=== PATIENT | male | born 2000 | race Caucasian/White ===

== ENCOUNTER 2025-07-30 20:29 | Emergency (ER) | payer BC, SELFPAY ==
[2025-07-30 20:31] VITALS: BP 132/85; PULSE 78; RESP 16; TEMP 36.6; O2SAT 98; BMI 26.0
--- NOTE | 2025-07-30 21:43 | CT_ITS ---
PROCEDURE: CT SINUS/FACIAL BONE WITH CONTRAS 07/30/2025 REASON FOR EXAM: LEFT FACIAL ABSCESS TECHNIQUE: Procedure Code: CTSIW Modality: CT Procedure: SINUS/FACIAL BONE WITH CONTRAS Coronal and Sagittal reconstruction series were provided. CONTRAST: Isovue 370 VOLUME: 97 mL One or more dose reduction techniques were used (e.g., Automated exposure control, adjustment of the mA and/or kV according to patient size, use of iterative reconstruction technique). RADIATION DOSE SUMMARY: CTDlvol: 29.38 mGy DLP: 554.8 mGycm COMPARISON: None. FINDINGS: Subcutaneous fat stranding/edema in the lateral left facial soft tissues with skin thickening/cellulitic changes. Small superficial subcutaneous phlegmonous collection just inferior to the left zygomatic arch measuring approximately 20 x 15 mm, but no organized rim enhancing fluid collection/abscess. No suspicious lymph node enlargement. Shotty subcentimeter reactive upper cervical lymph nodes. Orbital contents are unremarkable. The visualized osseous structures are intact and within normal limits. No osseous erosion or destruction. Clear paranasal sinuses and bilateral mastoid air cells. CT/Sinus/Facial Bone WITH Contras IMPRESSION: Subcutaneous fat stranding/edema and cellulitic changes in the lateral left fac ial soft tissues with a small superficial phlegmonous collection measuring roughly 20 mm just inferior to the left zygoma tic arch. No organized drainable fluid collection/abscess. Unremarkable osseous structures. Reading Location: [id number]
[2025-07-30 22:03] LABS: Hematocrit 41.1 % (40-54); Hemoglobin 14.3 g/dL (13.0-16.5); Immature Granulocytes Count 0.040 X10^3/uL (0.0-0.0); Mean Corp Hgb Conc 34.8 g/dL (32-36); Mean Corpuscular Volume 85.4 fL (80-94); Mean Platelet Vol. 9.9 fl (6.2-12.0); NRBC Flagged by Analyzer 0 % (0-5); Platelet Count 286 K/mm3 (150-450); RBC Distribution Width CV 11.4 % (11.6-14.6); RBC Distribution Width SD 35.7 fl (35.1-43.9); Red Blood Count 4.81 M/mm3 (4.6-6.2); White Blood Count 13.9 K/mm3 (4.4-11.0)
[2025-07-30 22:13] LABS: Anion Gap 13 (5-15); BUN 14 mg/dL (4-19); BUN/Creat Ratio 14.8 RATIO (10-20); Calcium,Total 9.4 mg/dL (7.6-11.0); Carbon Dioxide 24.3 mmol/L (21.0-32.0); Chloride 100 mmol/L (98-108); Estimated Creatinine Clearance 133.00 ml/min (50-250); Glucose 116 mg/dL (70-99); Potassium 3.8 mmol/L (3.3-5.1)
[2025-07-30 22:30] VITALS: BP 135/86; PULSE 76; RESP 16; TEMP 37; O2SAT 96
--- NOTE | 2025-07-31 00:08 | EX.ED.DYSGE1 ---
HPI History of Present Illness Chief Complaint: Abscess Narrative Narrative: Chief complaint and HPI: This 25-year-old male with no significant past medical history presents for concern of left facial abscess. Patient states he developed a pimple on the left side of his face. Attempted popping the area x 2. States since Friday he has been having increased pain and swelling to the area. He denies any fever, chills, URI symptoms, nausea, vomiting, headache, vision or hearing changes. Eating and drinking well. Tolerating secretions. Has been taking ibuprofen. Denies history of MRSA. Denies history of illicit drug use. Review of systems: See HPI Medications: As listed on the chart Allergies: As listed on the chart PFSH: Per chart Vital signs: As listed on the chart. Reviewed. Physical exam: Gen: A&O x3, NAD Head: Normocephalic, atraumatic Eyes: No sclera icterus, conjunctiva clear, PERRL, EOMI, no periorbital edema ENT: TMs clear BL, moist mucous membranes, posterior oropharynx unremarkable, no dental infection, uvula midline, tonsils not enlarged, no tonsillar exudates, tolerating secretions, normal phonation, no submandibular or sublingual swelling. Patient has an approximately 2 cm area of induration with a central scab located on the left face in the area of the parietal gland-erythematous and mildly tender to palpation-no crepitus-no lymphatic streaking Neck: Trachea midline, Full ROM, nontender, no swelling, no lymphadenopathy CV: RRR, no murmurs, no peripheral edema Resp: Lungs CTA BL, no w/r/c Psych: Cooperative, appropriate mood and affect [facility] Medical History no medical history Home Medications Medication Instructions Recorded Last Taken Type cephalexin 500 mg capsule 500 mg PO Q12 #14 CAPSULES 07/31/25 Unknown Rx doxycycline monohydrate 100 mg 100 mg PO BID #14 CAPSULES 07/31/25 Unknown Rx capsule Allergy/AdvReac Type Severity Reaction Status Date / Time No Known Allergies Allergy Verified 07/30/25 20:30 Social History Smoking Status: Current every day smoker tobacco type: smokeless tobacco EXAM Physical Exam Const Vital Signs: 07/30/25 20:31 07/30/25 22:30 Temperature 98 F 98.6 F Temperature Source Oral Oral Pulse Rate 78 76 Respiratory Rate 16 16 Blood Pressure 132/85 H 135/86 H Blood Pressure Mean 100 102 Pulse Ox 98 96 Oxygen Delivery Method Room Air MDM MDM MDM Narrative Medical decision making narrative: 25-year-old male with no significant past medical history presents for concern of left facial abscess. Patient states he developed a pimple on the left side of his face. Attempted popping the area x 2. States since Friday he has been having increased pain and swelling to the area. Denies systemic symptoms. On presentation, patient no acute distress. Vitals are stable. Afebrile. Differential diagnosis includes but is not limited to cellulitis, MRSA infection, superficial abscess, deep abscess. Not consistent with Malcom angina. Area is not fluctuance and instead indurated therefore CT of the face ordered to assess for deep infection. Basic labs ordered. CBC with mild leukocytosis of 13.9. No anemia. BMP unremarkable. CT of the face shows subcutaneous fat stranding/edema and cellulitic changes the left lateral facial soft tissues with small superficial phlegmon's collection measuring roughly 20 mm just inferior to the left stigmatic arch. No organized or interval fluid collection/abscess. Unremarkable osseous structures. Given the results, ENT was consulted and patient was discussed with Dr. Maxwell. I agreed with not attempting incision and drainage. Recommended p.o. antibiotics. Follow-up with PCP unless ENT needed. Patient was updated of all the results and confirmed understand the plan. Will place on Keflex and doxycycline for antibiotics x 7 days. First dose given here in the emergency department. Return precautions explained. Tylenol Motrin as needed for pain. Patient able to discharge home. He confirmed understanding of plan. Impression: 1. Left facial cellulitis Lab Data Labs: Laboratory Results - last 24 hr 07/30/25 20:38 WBC 13.9 H RBC 4.81 Hgb 14.3 Hct 41.1 MCV 85.4 MCH 29.7 MCHC 34.8 RDW Std Deviation 35.7 RDW Coeff of Mary 11.4 L Plt Count 286 MPV 9.9 Immature Gran % (Auto) 0.300 Neut % (Auto) 74.0 H Lymph % (Auto) 16.1 L Marshall % (Auto) 7.1 Eos % (Auto) 2.0 Baso % (Auto) 0.5 Absolute Neuts (auto) 10.3 H Absolute Lymphs (auto) 2.24 Nucleated RBC % 0 Sodium 137 Potassium 3.8 Chloride 100 Carbon Dioxide 24.3 Anion Gap 13 BUN 14 Creatinine 0.94 Estim Creat Clear Calc 133.00 Est GFR (MDRD) Non-Af 116 BUN/Creatinine Ratio 14.8 Glucose 116 H Calcium 9.4 Radiography Diagnostic Testing: Clinical Impression(s) from Imaging Studies Facial/Sinus 07/30/25 21:43 IMPRESSION: Subcutaneous fat stranding/edema and cellulitic changes in the lateral left facial soft tissues with a small superficial phlegmonous collection measuring roughly 20 mm just inferior to the left zygomatic arch. No organized drainable fluid collection/abscess. Unremarkable osseous structures. Reading Location: [facility] Discharge Plan Triage Chief Complaint: Abscess ED Provider: Manuel Dacosta Dx/Rx/DC Orders Instructions: ED Cellulitis, Facial Prescriptions: New cephalexin 500 mg capsule 500 mg PO Q12 Qty: 14 0RF doxycycline monohydrate 100 mg capsule 100 mg PO BID Qty: 14 0RF Primary Care Provider: Karen Muñoz NP Referrals: Kalia Maxwell MD [Med Staff - Active Staff, Ear Nose Throat (ENT)] - 3-5 Days Karen Muñoz NP, [facility] [Primary Care Provider, Family Practice] - 3-5 Days Activity Restrictions/Additional Instructions: Return back to ED if symptoms change or worsen. Follow-up with primary care physician and ENT if needed Print Language: Latvian Disposition Disposition: Home, Self Care Discharge Date/Time: 07/31/25 00:22
[2025-07-31 00:13] VITALS: BP 116/71; PULSE 88; RESP 16; TEMP 36.7; O2SAT 98
== END 2025-07-31 00:22 | disposition home or self-care (01) ==
PROVIDERS: Emergency Provider Surgery; PCP Nurse Practitioner Family; Visit Provider Surgery
DX: L03.211 Cellulitis of face (principal); F17.220 Nicotine dependence, chewing tobacco, uncomplicated
CPT/HCPCS: 70487; 80048; 85025; 99285; Q9967; A4216